=== PATIENT | male | born 1975 | race Caucasian/White ===

== ENCOUNTER 2023-03-22 13:25 | Emergency (ER) | payer OTHER ==
[~2023-03-22 13:25] MED LIST: AMOXICILLIN500 MG PO; NKHM; PEN-VEE K500 MG PO; TRAMADOL HCL50 MG PO; VICODIN 5/500 505 MG PO
== END 2023-03-22 14:33 | disposition left against medical advice (07) ==
LOC: ED 13:25
DX: T14.90XA Injury, unspecified, initial encounter (principal); Z91.030 Bee allergy status; Z53.21 Procedure and treatment not carried out due to patient leaving prior to being seen by health care provider; X58.XXXA Exposure to other specified factors, initial encounter; Y93.89 Activity, other specified; Y92.89 Other specified places as the place of occurrence of the external cause; Y99.8 Other external cause status